=== PATIENT | male | born 1940 | race Caucasian/White ===

== ENCOUNTER → 2017-03-19 | Outpatient (CLI) | payer OTHER | LOC: CVU 13:35 | PROVIDERS: ATTEND Internal Medicine Cardiovascular Disease | DX: I65.22 Occlusion and stenosis of left carotid artery (principal); E11.9 Type 2 diabetes mellitus without complications; E78.5 Hyperlipidemia, unspecified | CPT/HCPCS: 93880; 93922; 93931 ==

== ENCOUNTER 2018-03-18 08:29 | Observation (INO) | payer OTHER ==
[~2018-03-18] VITALS: Ht 180.3 cm; Wt 84.0 kg
[~2018-03-18 08:29] MED LIST: ASPI-496 PO; DEXL60CA2 PO; DICL100G19 TP; EPIN5DRO RIGHTEYE; FINA5TAB4 PO; IPRA12.9 INH; IPRA15SP NS; Insulin pump; ROSU20TA PO; SERT50TA28 PO; TAMS-11 PO; TIMO5DRO5 RIGHTEYE; TRAZ-137 PO
[2018-03-18] MEDS ORDERED: LACTATED RINGERS 1,000 ML IV SCH (09:01)
[2018-03-18 09:04] VITALS: BP 136/75
[2018-03-18] MEDS ORDERED: FENTANYL PF 100 MCG/2ML ONE (09:57)
[2018-03-18] MEDS ORDERED: MIDAZOLAM 1 MG/ML, 2ML ONE (09:57)
[2018-03-18] MEDS ORDERED: GLYCOPYRROLATE 0.2MG/1ML, 5ML ONE (11:23)
[2018-03-18] MEDS ORDERED: ROCURONIUM 10 MG/ML,10ML ONE (11:23)
[2018-03-18] MEDS ORDERED: NEOSTIGMINE 1 MG/ML, 10ML ONE (11:23)
[2018-03-18] MEDS ORDERED: CEFAZOLIN 1,000 MG ONE (11:23)
[2018-03-18] MEDS ORDERED: GENTAMICIN 80 MG/2 ML ONE (11:23)
[2018-03-18] MEDS ORDERED: SUCCINYLCHOLINE 20 MG/ML, 10ML ONE (11:23)
[2018-03-18] MEDS ORDERED: PROPOFOL 10 MG/ML, 20ML ONE (11:23)
[2018-03-18] MEDS ORDERED: OXYcodone 5 MG/5 ML ORAL.SOL UDC ONE (12:42)
[2018-03-18] MEDS ORDERED: KETOROLAC 30 MG/1 ML ONE (12:44)
[2018-03-18] MEDS ORDERED: MEPERIDINE/PF 25MG/0.5ML IVPush PRN (13:00)
[2018-03-18] MEDS ORDERED: METOCLOPRAMIDE 5 MG/ML, 2ML IV PRN (13:00)
[2018-03-18] MEDS ORDERED: PROMETHAZINE 25 MG/ML, 1ML IV PRN (13:00)
[2018-03-18] MEDS ORDERED: FENTANYL PF 100 MCG/2ML IV PRN (13:00)
[2018-03-18] MEDS ORDERED: HYDROmorphone 1 MG/ML, 1ML IV PRN (13:00)
[2018-03-18] MEDS ORDERED: hydrALAzine 20 MG/ML, 1ML IV PRN (13:00)
[2018-03-18] MEDS ORDERED: ONDANSETRON 2MG/ML, 2ML IVPush PRN (13:00)
[2018-03-18] MEDS ORDERED: OXYcodone 5 MG/5 ML ORAL.SOL UDC PO PRN (13:00)
[2018-03-18] MEDS ORDERED: LABETALOL 20 MG/4 ML IV PRN (13:00)
[2018-03-18] MEDS ORDERED: ALBUTEROL SULFATE 2.5 MG/3 ML NPPB PRN (13:00)
[2018-03-18] MEDS ORDERED: KETOROLAC 30 MG/1 ML IV PRN (13:00)
[2018-03-18] MEDS ORDERED: hydrALAzine 20 MG/ML, 1ML ONE (13:03)
[2018-03-18] MEDS ORDERED: ONDANSETRON 2MG/ML, 2ML IV PRN (14:30)
[2018-03-18] MEDS ORDERED: ACETAMINOPHEN 325 MG TABLET PO PRN (14:30)
[2018-03-18] MEDS ORDERED: DIPHENHYDRAMINE 25 MG CAPSULE PO PRN (14:30)
[2018-03-18] MEDS ORDERED: OPIUM/BELLADONNA SUPP.RECT 16.2-30 MG PR PRN (14:30)
[2018-03-18] MEDS: HOME MED SHEET MC SCH ×2 (15:00→23:00)
[2018-03-18] MEDS ORDERED: HUMALOG INSULIN PUMP SQ-INSULIN SCH (15:00)
[2018-03-18] MEDS ORDERED: PHARMACY INSTRUCTION MC PRN (17:30)
[2018-03-18] MEDS ORDERED: IPRATROPIUM NASAL 0.03%, 30ML NAS PRN (17:30)
[2018-03-18 19:45] VITALS: BP 138/76
[2018-03-18] MEDS: CEFAZOLIN PMX 1GM/50ML 50 ML IVPB SCH (20:32)
[2018-03-18] MEDS: TIMOLOL OPHTH 0.5%, 5ML RIGHTEYE SCH (20:33)
[2018-03-18] MEDS: LACTATED RINGERS 1,000 ML IV SCH (20:34)
[2018-03-18] MEDS ORDERED: ATORVASTATIN 40 MG TABLET PO SCH (21:00)
[2018-03-18] MEDS ORDERED: TRAZODONE 100MG TABLET PO PRN (21:00)
[2018-03-18 23:35] VITALS: BP 145/77
[2018-03-19 04:00] VITALS: BP 134/79
[2018-03-19] MEDS: CEFAZOLIN PMX 1GM/50ML 50 ML IVPB SCH (05:00)
[2018-03-19 05:02] LABS: CALCIUM 8.4 mg/dL (8.5-10.1); CHLORIDE 109 mmol/L (98-107)
[2018-03-19 05:05] LABS: ANION GAP 4 mmol/L (5-15); CREATININE 0.88 mg/dL (0.7-1.3)
[2018-03-19] MEDS ORDERED: PANTOPROZOLE 40MG TABLET PO SCH (06:00)
[2018-03-19] MEDS: HOME MED SHEET MC SCH (07:00)
[2018-03-19] MEDS: LACTATED RINGERS 1,000 ML IV SCH (07:45)
[2018-03-19] MEDS: TIMOLOL OPHTH 0.5%, 5ML RIGHTEYE SCH (07:50)
[2018-03-19 08:03] VITALS: BP 145/73
[2018-03-19] MEDS ORDERED: DOCUSATE 100 MG CAPSULE PO SCH (09:00)
[2018-03-19] MEDS ORDERED: EPINASTINE RIGHTEYE SCH (09:00)
[2018-03-19] MEDS ORDERED: SERTRALINE 50MG TABLET PO SCH (09:00)
[2018-03-19] MEDS ORDERED: TAMSULOSIN 0.4 MG CAP.ER.24H PO SCH (09:00)
[2018-03-19] MEDS ORDERED: FINASTERIDE 5 MG TABLET PO SCH (09:00)
[2018-03-19 13:18] VITALS: BP 121/68
== END 2018-03-19 16:29 | disposition home or self-care (01) ==
LOC: OUT 08:29 → 4NOR 13:45 → OUT 14:07 → DCLOUNGE 03-19 16:12
PROVIDERS: ADMIT Urology; ATTEND Urology
DX: N40.0 Benign prostatic hyperplasia without lower urinary tract symptoms (principal)
CPT/HCPCS: 36415; 52601; 80048; 82962; 88305; 96365; 96366; G0378; J0330; J0360; J0690; J1580; J1885; J2250; J2704; J2710; J3010; J3490; J7120

== ENCOUNTER 2018-04-16 11:38 | Observation (INO) | payer OTHER ==
[~2018-04-16] VITALS: Ht 180.3 cm; Wt 88.3 kg
[~2018-04-16 11:38] MED LIST changes: -ROSU20TA PO; +ROSU20TA2 PO
--- NOTE | 2018-04-16 11:38 | NUR ---
PT. ARRIVES BY AMBULANCE FROM [place] WITH C/O CHEST PAIN THAT BEGAN AFTER 1000 AM TODAY. PT. IS CURRENTLY PAIN FREE AND SYMPTOMATIC. CODE CARDIAC WAS INICIATED FEDERAL AGENT. PT. HAS [address] 12 LEAD EKG WAS DONE UPON ARRIVAL. ER TEAM IS AT THE BEDSIDE. PT. WAS PLACED ON THE CP MONITOR. EXPLAINING MAINTENANCE SHOP LABORER AND THE PROCEDURE TO THE PT. PT. RECEIVED 324MG ASA FEDERAL AGENT WELL ZOFRAN. LUNGS ARE CTA. MM ARE PINK AND MOIST WITH PULSES +2 THROUGHOUT. PT. HAS A BLANKET FOR WARMTH. SIDERAILS REMAIN UP X [address] WITH THE CALL LIGHT IN PLACE.
[2018-04-16] MEDS ORDERED: SODIUM CHLORIDE 0.9% 1,000 ML IV SCH (11:54)
[2018-04-16 12:00] LABS: BASOPHILS # (AUTO) 0.02 x10^3/uL (0-0.1); BASOPHILS % (AUTO) 0 % (0-1); EOSINOPHILS # (AUTO) 0.25 x10^3/uL (0-0.4); EOSINOPHILS % (AUTO) 5 % (1-7); LYMPHOCYTES # (AUTO) 1.42 x10^3/uL (1-3.4); LYMPHOCYTES % (AUTO) 29 % (22-44); MD NO; MEAN CORPUSCULAR HEMOGLOBIN 32.3 pg (27.5-34.5); MEAN CORPUSCULAR HGB CONC 33.8 g/dL (33.2-36.2); MEAN CORPUSCULAR VOLUME 95.6 fL (81-97); MEAN PLATELET VOLUME 9.4 fL (7.4-10.4); MONOCYTES # (AUTO) 0.32 x10^3/uL (0.2-0.8); MONOCYTES % (AUTO) 7 % (2-9); NEUTROPHILS # (AUTO) 2.89 x10^3/uL (1.8-6.8); NEUTROPHILS % (AUTO) 59 % (42-75); PLATELET COUNT 188 x10^3/uL (130-400); RED BLOOD COUNT 4.15 x10^6/uL (4.38-5.82); RED CELL DISTRIBUTION WIDTH 13.7 % (9.4-14.8)
[2018-04-16] MEDS ORDERED: SODIUM CHLORIDE FLUSH 10ML SYR IVF ONE (12:00)
[2018-04-16] MEDS ORDERED: PLEASE ENTER HEIGHT AND WEIGHT MC SCH (12:00)
[2018-04-16] MEDS ORDERED: HEPARIN 25,000 UNITS/500ML PMX 500 ML IV PRN ×2 (12:00→14:30)
[2018-04-16] MEDS ORDERED: HEPARIN 5,000 UNITS/ML, 1ML ONE (12:02)
[2018-04-16] MEDS ORDERED: HEPARIN 25,000 UNITS/500ML PMX 500 ML ONE (12:03)
[2018-04-16 12:10] LABS: INTERNATIONAL NORMALIZED RATIO 1.02 (0.93-1.1); PROTHROMBIN TIME 10.7 Seconds (9.6-11.5)
[2018-04-16 12:12] LABS: ALBUMIN 3.2 g/dL (3.4-5.0); CALCIUM 7.8 mg/dL (8.5-10.1); CHLORIDE 113 mmol/L (98-107)
--- NOTE | 2018-04-16 12:20 | NUR ---
MARGUERITE CHINO CALLED THE PHARMACIST GABRIEL TO DISCUSS PT.'S HEPARIN GTT. PT.'S HEPARIN IS INFUSING ON THE PUMP. NO BOLUS ORDERED. LABS HAVE BEEN DONE. NO BOLUS IS ORDERED AT THIS TIME. DISCUSSED WITH DR. QUINONES, NO FURTHER ORDERS. ALL MEDICATIONS WERE ADMINISTERED ORDERED AND CHECK BY MARGUERITE COLLADO AND MARGUERITE CHINO. PT. REMAINS PAIN FREE, VOIDED 400 CC YELLOW URINE AND IS RESTING WITHOUT CONCERNS. HOB IS ELEVATED GREATER THAN 30 DEGREES. PT. HAS BLANKETS FOR WARMTH.
[2018-04-16 12:25] LABS: ANION GAP 5 mmol/L (5-15)
--- NOTE | 2018-04-16 12:35 | NUR ---
DR. HEARD AT THE BEDSIDE WITH THE. IS AWARE THAT A HEPARIN BOLUS HAS NOT BEEN ORDERED. VSS.
[2018-04-16] MEDS ORDERED: IPRATROPIUM 0.5 MG/2.5 ML INHA NPPB SCH (13:00)
[2018-04-16] MEDS ORDERED: SODIUM CHLORIDE FLUSH 10ML SYR IVF PRN (13:00)
[2018-04-16] MEDS ORDERED: NITROGLYCERIN SINGLE TAB 0.4 MG SL PRN (13:00)
--- NOTE | 2018-04-16 13:13 | NUR ---
REPORT WAS GIVEN TO DUNCAN EVERETT.
[2018-04-16 13:14] LABS: CHOLESTEROL, TOTAL 124 mg/dL (140-239); TRIGLYCERIDES 67 mg/dL (50-200); VLDL CHOLESTEROL 13 mg/dL (0-25)
[2018-04-16 13:17] LABS: CHOL/HDL RATIO 3.1; HDL CHOL % 32 % (26-37); HDL CHOLESTEROL (DIRECT) 40 mg/dL (40-60); LDL CHOLESTEROL,CALCULATED 71 mg/dL (54-169); LDL/HDL RATIO 1.8 (0.5-3.0)
[2018-04-16 13:18] LABS: TROPONIN I 0.352 ng/mL (0.000-0.045)
--- NOTE | 2018-04-16 13:52 | NUR ---
REPORT TO LAURE EVERETT
[2018-04-16 14:28] VITALS: BP 121/60
[2018-04-16] MEDS ORDERED: HEPARIN 5,000 UNITS/ML, 1ML IV ONE (14:30)
[2018-04-16] MEDS ORDERED: HEPARIN 5,000 UNITS/ML, 1ML IV PRN (14:30)
[2018-04-16] MEDS ORDERED: BIVALIRUDIN 250 MG ONE (16:21)
[2018-04-16] MEDS ORDERED: TICAGRELOR 90 MG TABLET ONE (16:21)
[2018-04-16] MEDS ORDERED: MIDAZOLAM 1 MG/ML, 5ML ONE (16:21)
[2018-04-16] MEDS ORDERED: VERAPAMIL 2.5 MG/ML, 2ML ONE (16:21)
[2018-04-16] MEDS ORDERED: HEPARIN 1,000 UNITS/ML, 10ML ONE (16:21)
[2018-04-16] MEDS ORDERED: FENTANYL PF 100 MCG/2ML ONE (16:21)
[2018-04-16] MEDS ORDERED: LIDOCAINE-MPF 1%, 5ML ONE (16:22)
[2018-04-16] MEDS ORDERED: LIDOCAINE 2%, 20ML ONE (16:33)
[2018-04-16] MEDS ORDERED: ASPIRIN 325 MG TABLET EC ONE (18:06)
[2018-04-16] MEDS ORDERED: ACETAMINOPHEN 325 MG TABLET PO PRN (18:30)
[2018-04-16] MEDS: SODIUM CHLORIDE 0.9% 1,000 ML IV SCH ×2 (18:44→21:33)
[2018-04-16 20:00] VITALS: BP 123/69
[2018-04-16] MEDS ORDERED: TEMPLATE NON-FORMULARY MED. (Rosuvastatin Calcium** (Crestor**) 20 MG) PO SCH (21:00)
[2018-04-16] MEDS: TICAGRELOR 90 MG TABLET PO SCH (21:26)
[2018-04-16] MEDS: TAMSULOSIN 0.4 MG CAP.ER.24H PO SCH (21:26)
[2018-04-16] MEDS: METOPROLOL TARTRATE 25 MG TABLET PO SCH (21:26)
[2018-04-16] MEDS: SODIUM CHLORIDE FLUSH 10ML SYR IVF SCH (21:27)
[2018-04-16] MEDS: TRAZODONE 100MG TABLET PO SCH (21:27)
[2018-04-16] MEDS: ATORVASTATIN 80 MG TABLET PO SCH (21:27)
[2018-04-16] MEDS: TIMOLOL OPHTH 0.5%, 5ML RIGHTEYE SCH (21:38)
[2018-04-16] MEDS ORDERED: ONDANSETRON ODT 4 MG ONE (22:57)
[2018-04-16] MEDS ORDERED: ONDANSETRON ODT 4 MG PO PRN (23:00)
[2018-04-17] MEDS ORDERED: LATA2.5D3 RIGHTEYE (00:01)
[2018-04-17 01:53] VITALS: BP 106/59
[2018-04-17 05:22] LABS: ANION GAP 4 mmol/L (5-15); CALCIUM 7.8 mg/dL (8.5-10.1); CHLORIDE 114 mmol/L (98-107); CREATININE 0.91 mg/dL (0.7-1.3)
[2018-04-17] MEDS: SODIUM CHLORIDE 0.9% 1,000 ML IV SCH (05:22)
[2018-04-17] MEDS: ASPIRIN 81 MG TABLET EC PO SCH (05:22)
[2018-04-17] MEDS ORDERED: ASPIRIN 325 MG TABLET EC PO SCH (06:00)
[2018-04-17 07:06] VITALS: BP 112/62
[2018-04-17] MEDS: PANTOPROZOLE 40MG TABLET PO SCH (08:27)
[2018-04-17] MEDS: TIMOLOL OPHTH 0.5%, 5ML RIGHTEYE SCH ×2 (08:27→20:32)
[2018-04-17] MEDS: TAMSULOSIN 0.4 MG CAP.ER.24H PO SCH ×2 (08:27→20:31)
[2018-04-17] MEDS: SERTRALINE 50MG TABLET PO SCH (08:27)
[2018-04-17] MEDS: TICAGRELOR 90 MG TABLET PO SCH ×2 (08:27→20:37)
[2018-04-17] MEDS: METOPROLOL TARTRATE 25 MG TABLET PO SCH ×2 (08:27→20:31)
[2018-04-17] MEDS: FINASTERIDE 5 MG TABLET PO SCH (08:27)
[2018-04-17] MEDS: SODIUM CHLORIDE FLUSH 10ML SYR IVF SCH ×2 (08:29→20:30)
[2018-04-17 15:35] VITALS: BP 104/62
[2018-04-17 19:26] VITALS: BP 107/61
[2018-04-17] MEDS: ATORVASTATIN 80 MG TABLET PO SCH (20:30)
[2018-04-17] MEDS: TRAZODONE 100MG TABLET PO SCH (20:31)
[2018-04-17] MEDS: EPINASTINE HCL RIGHTEYE SCH ×2 (20:38→21:00)
[2018-04-18 00:02] VITALS: BP 124/71
[2018-04-18] MEDS: ASPIRIN 81 MG TABLET EC PO SCH (05:22)
[2018-04-18 05:53] LABS: ANION GAP 4 mmol/L (5-15); CALCIUM 8.4 mg/dL (8.5-10.1); CHLORIDE 114 mmol/L (98-107)
[2018-04-18 06:01] LABS: BASOPHILS # (AUTO) 0.02 x10^3/uL (0-0.1); BASOPHILS % (AUTO) 0 % (0-1); EOSINOPHILS # (AUTO) 0.21 x10^3/uL (0-0.4); EOSINOPHILS % (AUTO) 4 % (1-7); LYMPHOCYTES % (AUTO) 26 % (22-44); MD NO; MEAN CORPUSCULAR HEMOGLOBIN 32.3 pg (27.5-34.5); MEAN CORPUSCULAR VOLUME 95.1 fL (81-97); MEAN PLATELET VOLUME 9.6 fL (7.4-10.4); MONOCYTES # (AUTO) 0.68 x10^3/uL (0.2-0.8); MONOCYTES % (AUTO) 11 % (2-9); NEUTROPHILS # (AUTO) 3.59 x10^3/uL (1.8-6.8); NEUTROPHILS % (AUTO) 59 % (42-75); PLATELET COUNT 166 x10^3/uL (130-400); RED BLOOD COUNT 4.04 x10^6/uL (4.38-5.82); RED CELL DISTRIBUTION WIDTH 13.8 % (9.4-14.8)
[2018-04-18 06:09] LABS: HEMOGLOBIN A1C 7.5 % (4.2-6.3)
[2018-04-18 07:14] VITALS: BP 145/76
[2018-04-18] MEDS: TAMSULOSIN 0.4 MG CAP.ER.24H PO SCH (09:13)
[2018-04-18] MEDS: FINASTERIDE 5 MG TABLET PO SCH (09:13)
[2018-04-18] MEDS: TICAGRELOR 90 MG TABLET PO SCH (09:13)
[2018-04-18] MEDS: METOPROLOL TARTRATE 25 MG TABLET PO SCH (09:14)
[2018-04-18] MEDS: PANTOPROZOLE 40MG TABLET PO SCH (09:14)
[2018-04-18] MEDS: SERTRALINE 50MG TABLET PO SCH (09:14)
[2018-04-18] MEDS: SODIUM CHLORIDE FLUSH 10ML SYR IVF SCH (09:15)
[2018-04-18] MEDS: TIMOLOL OPHTH 0.5%, 5ML RIGHTEYE SCH (09:15)
[2018-04-18] MEDS ORDERED: ATOR-2 PO (10:39)
[2018-04-18] MEDS ORDERED: NITR0.4T SL (10:39)
[2018-04-18] MEDS ORDERED: TICA90TA PO (10:39)
[2018-04-18] MEDS ORDERED: ONDA4TAB13 PO (10:39)
[2018-04-18] MEDS ORDERED: METO25TA35 PO (10:39)
[2018-04-18] MEDS ORDERED: ASPI81TA45 PO (10:39)
[2018-04-18] MEDS ORDERED: LISINOPRIL 5 MG TABLET PO SCH (11:00)
[2018-04-18 11:11] LABS: BILIRUBIN, DIRECT 0.2 mg/dL (0.1-0.2); BILIRUBIN,INDIRECT 0.4 mg/dL (0.0-2.0); BILIRUBIN,TOTAL 0.6 mg/dL (0.2-1.0); TOTAL PROTEIN 6.2 g/dL (6.4-8.2)
[2018-04-18] MEDS ORDERED: LISI5TAB7 PO (11:33)
[2018-05-27] MEDS ORDERED: OXYcodone IR 5MG TABLET PO PRN (15:30)
[2018-05-27] MEDS ORDERED: ENOXAPARIN 40 MG/0.4 ML SQ SCH (15:30)
[2018-05-27] MEDS ORDERED: NITROGLYCERIN 0.4 MG BOTTLE (25 TABS) SL PRN ×2 (15:30)
[2018-05-27] MEDS ORDERED: LABETALOL 5MG/ML, 20ML IVPush PRN (15:30)
[2018-05-27] MEDS ORDERED: ACETAMINOPHEN 325 MG TABLET PO PRN (15:30)
[2018-05-27] MEDS ORDERED: morphine SULFATE 10 MG/ML, 1ML IVPush PRN (15:30)
[2018-05-27] MEDS ORDERED: INSULIN LISPRO 100 UNITS/ML, PEN SQ-INSULIN SCH (16:00)
[2018-05-27 16:52] LABS: HEMOGLOBIN A1C 7.9 % (4.2-6.3)
[2018-05-27 18:42] LABS: TROPONIN I 0.022 ng/mL (0.000-0.045)
[2018-05-27] MEDS ORDERED: ATORVASTATIN 80 MG TABLET PO SCH (21:00)
[2018-05-27 22:31] LABS: TROPONIN I 0.022 ng/mL (0.000-0.045)
[2018-05-28 04:48] LABS: BASOPHILS # (AUTO) 0.03 x10^3/uL (0-0.1); BASOPHILS % (AUTO) 1 % (0-1); EOSINOPHILS # (AUTO) 0.23 x10^3/uL (0-0.4); EOSINOPHILS % (AUTO) 4 % (1-7); LYMPHOCYTES # (AUTO) 2.27 x10^3/uL (1-3.4); LYMPHOCYTES % (AUTO) 43 % (22-44); MD NO; MEAN CORPUSCULAR HEMOGLOBIN 32.2 pg (27.5-34.5); MEAN CORPUSCULAR HGB CONC 33.9 g/dL (33.2-36.2); MEAN CORPUSCULAR VOLUME 95.1 fL (81-97); MONOCYTES # (AUTO) 0.47 x10^3/uL (0.2-0.8); MONOCYTES % (AUTO) 9 % (2-9); NEUTROPHILS # (AUTO) 2.34 x10^3/uL (1.8-6.8); NEUTROPHILS % (AUTO) 44 % (42-75); PLATELET COUNT 184 x10^3/uL (130-400); RED BLOOD COUNT 4.26 x10^6/uL (4.38-5.82); RED CELL DISTRIBUTION WIDTH 13.7 % (9.4-14.8)
[2018-05-28 05:03] LABS: ANION GAP 6 mmol/L (5-15); CALCIUM 8.5 mg/dL (8.5-10.1); CHLORIDE 109 mmol/L (98-107)
[2018-05-28 05:04] LABS: CREATININE 1.15 mg/dL (0.7-1.3)
[2018-05-28] MEDS ORDERED: ASPIRIN 81 MG TABLET EC PO SCH (06:00)
[2018-05-28] MEDS ORDERED: EPINASTINE OTIC SCH (09:00)
[2018-05-28] MEDS ORDERED: LISINOPRIL 5 MG TABLET PO SCH (09:00)
== END 2018-04-18 11:30 | disposition home or self-care (01) ==
LOC: ED 12:31 → INTOOBSV 12:32 → EDIP 12:32 → ED 13:35 → 5SO 14:14 → DCLOUNGE 04-18 11:10
PROVIDERS: ADMIT Internal Medicine; ATTEND Internal Medicine
DX: T82.855A Stenosis of coronary artery stent, initial encounter (principal); I25.110 Atherosclerotic heart disease of native coronary artery with unstable angina pectoris; Y83.1 Surgical operation with implant of artificial internal device as the cause of abnormal reaction of the patient, or of later complication, without mention of misadventure at the time of the procedure; F32.9 Major depressive disorder, single episode, unspecified; E78.5 Hyperlipidemia, unspecified; E11.9 Type 2 diabetes mellitus without complications; I10 Essential (primary) hypertension; T40.2X5A Adverse effect of other opioids, initial encounter; Z96.41 Presence of insulin pump (external) (internal); N40.0 Benign prostatic hyperplasia without lower urinary tract symptoms; Z79.82 Long term (current) use of aspirin; I25.2 Old myocardial infarction; Z79.4 Long term (current) use of insulin; Y92.89 Other specified places as the place of occurrence of the external cause; Z88.6 Allergy status to analgesic agent
CPT/HCPCS: 36415; 71045; 80048; 80061; 80076; 82040; 83036; 83735; 83880; 84100; 84484; 85025; 85520; 85610; 85730; 93005; 93306; 93458; 96365; 96366; 96376; 97161; 99156; 99157; 99285; C1725; C1760; C1769; C1874; C1887; C1894; C9600; G0378; J0583; J1644; J2250; J3010; J3490; J7030; Q0162; Q9967; 96374

== ENCOUNTER 2018-04-19 09:22 | Emergency (ER) | payer MEDICARE, OTHER ==
[~2018-04-19] VITALS: Ht 180.3 cm; Wt 86.0 kg
[~2018-04-19 09:22] MED LIST changes: +ASPI81TA45 PO; +ATOR-2 PO; +LATA2.5D3 RIGHTEYE; +LISI5TAB7 PO; +METO25TA35 PO; +NITR0.4T SL; +ONDA4TAB13 PO; +TICA90TA PO
--- NOTE | 2018-04-19 09:55 | NUR ---
Diffuse upper chest pressure 3/10 with SOB onset 1hr ago. Pt was d/c from [facility] yesterday after being hospitalized for DE.
[2018-04-19] MEDS ORDERED: NITROGLYCERIN OINT 2%, 1GM TP ONE ×2 (10:03→11:00)
[2018-04-19] MEDS ORDERED: ASPIRIN 81 MG TABLET CHEW ONE (10:03)
--- NOTE | 2018-04-19 10:17 | NUR ---
Sinus jennifer on monitor. IV lock est, labs drawn to hold. Awaiting ER MD orders. Intermittent chest pressure remains.
[2018-04-19] MEDS ORDERED: SODIUM CHLORIDE FLUSH 10ML SYR IVF ONE (11:00)
[2018-04-19] MEDS ORDERED: ASPIRIN 81 MG TABLET CHEW PO ONE (11:00)
--- NOTE | 2018-04-19 11:05 | NUR ---
ASA, Ntg paste applied as per emar. CXR done, labs pending. Pt states pressure in chest 2/10 at this time.
[2018-04-19 11:21] LABS: BASOPHILS # (AUTO) 0.02 x10^3/uL (0-0.1); BASOPHILS % (AUTO) 0 % (0-1); EOSINOPHILS # (AUTO) 0.18 x10^3/uL (0-0.4); EOSINOPHILS % (AUTO) 3 % (1-7); LYMPHOCYTES # (AUTO) 1.05 x10^3/uL (1-3.4); LYMPHOCYTES % (AUTO) 20 % (22-44); MD NO; MEAN CORPUSCULAR HEMOGLOBIN 31.5 pg (27.5-34.5); MEAN CORPUSCULAR HGB CONC 32.7 g/dL (33.2-36.2); MEAN CORPUSCULAR VOLUME 96.5 fL (81-97); MEAN PLATELET VOLUME 10.1 fL (7.4-10.4); MONOCYTES # (AUTO) 0.45 x10^3/uL (0.2-0.8); MONOCYTES % (AUTO) 9 % (2-9); NEUTROPHILS # (AUTO) 3.61 x10^3/uL (1.8-6.8); NEUTROPHILS % (AUTO) 68 % (42-75); PLATELET COUNT 174 x10^3/uL (130-400); RED BLOOD COUNT 3.96 x10^6/uL (4.38-5.82); RED CELL DISTRIBUTION WIDTH 14.1 % (9.4-14.8)
[2018-04-19 11:31] LABS: ALANINE AMINOTRANSFERASE 52 U/L (12-78); ANION GAP 4 mmol/L (5-15); CHLORIDE 112 mmol/L (98-107); CREATININE 0.99 mg/dL (0.7-1.3); INTERNATIONAL NORMALIZED RATIO 1.05 (0.93-1.1)
[2018-04-19 11:36] LABS: ALKALINE PHOSPHATASE 91 U/L (45-117); BILIRUBIN,TOTAL 0.6 mg/dL (0.2-1.0); TOTAL PROTEIN 6.1 g/dL (6.4-8.2)
--- NOTE | 2018-04-19 11:49 | NUR ---
paged dr duane hoskins for dr cage
--- NOTE | 2018-04-19 12:30 | NUR ---
Pain free at time of d/c. Patient given discharge instructions and they have confirmed that they understand the instructions. Patient ambulatory with steady gait.
[2018-04-19 12:31] VITALS: BP 121/61
== END 2018-04-19 12:33 | disposition home or self-care (01) ==
LOC: ED 11:27
DX: R07.2 Precordial pain (principal); I25.2 Old myocardial infarction; E78.5 Hyperlipidemia, unspecified; E11.9 Type 2 diabetes mellitus without complications
CPT/HCPCS: 36415; 71045; 80053; 83880; 84484; 85025; 85610; 85730; 93005; 99284

== ENCOUNTER 2018-05-10 10:54 | Emergency (ER) | payer OTHER ==
[~2018-05-10] VITALS: Ht 180.3 cm; Wt 84.5 kg
[2018-05-10 10:57] VITALS: BP 128/73
[2018-05-10 11:52] LABS: BASOPHILS # (AUTO) 0.02 x10^3/uL (0-0.1); BASOPHILS % (AUTO) 0 % (0-1); EOSINOPHILS # (AUTO) 0.32 x10^3/uL (0-0.4); EOSINOPHILS % (AUTO) 5 % (1-7); LYMPHOCYTES # (AUTO) 1.54 x10^3/uL (1-3.4); LYMPHOCYTES % (AUTO) 23 % (22-44); MD NO; MEAN CORPUSCULAR HEMOGLOBIN 31.9 pg (27.5-34.5); MEAN CORPUSCULAR HGB CONC 33.3 g/dL (33.2-36.2); MEAN CORPUSCULAR VOLUME 95.7 fL (81-97); MEAN PLATELET VOLUME 10.3 fL (7.4-10.4); MONOCYTES # (AUTO) 0.46 x10^3/uL (0.2-0.8); MONOCYTES % (AUTO) 7 % (2-9); NEUTROPHILS # (AUTO) 4.41 x10^3/uL (1.8-6.8); NEUTROPHILS % (AUTO) 65 % (42-75); PLATELET COUNT 214 x10^3/uL (130-400); RED BLOOD COUNT 4.51 x10^6/uL (4.38-5.82)
[2018-05-10 12:02] LABS: ALBUMIN 3.6 g/dL (3.4-5.0); ANION GAP 6 mmol/L (5-15); CALCIUM 8.4 mg/dL (8.5-10.1); CHLORIDE 109 mmol/L (98-107)
[2018-05-10 12:06] LABS: TROPONIN I 0.016 ng/mL (0.000-0.045)
[2018-05-10] MEDS ORDERED: SODIUM CHLORIDE 0.9% 1,000ML IVBOLUS ONE (12:30)
[2018-05-10] MEDS ORDERED: OMNIPAQUE 350 MG/ML, 100ML BOTTLE ONE (12:50)
== END 2018-05-10 14:25 | disposition home or self-care (01) ==
LOC: ED 12:12
DX: E11.65 Type 2 diabetes mellitus with hyperglycemia (principal)
CPT/HCPCS: 36415; 71045; 71275; 80048; 82040; 83880; 84484; 85025; 85379; 93005; 99284; Q9967

== ENCOUNTER 2018-05-27 12:16 | Inpatient (IN) | payer OTHER ==
[~2018-05-27] VITALS: Ht 180.3 cm; Wt 82.7 kg
[2018-05-27] MEDS ORDERED: SODIUM CHLORIDE FLUSH 10ML SYR IVF ONE (12:30)
--- NOTE | 2018-05-27 12:58 | NUR ---
PT PRESENTED TO ED WITH "NOT FEELING WELL" WHEN HE WAS AT THE [facility]KELET[facility] PHYSICIAN TODAY. PT A&OX4. PT PLACED IN ROOM AND PLACED ON BP AND CONT. PULSE OXIMETER. ASSESSMENT COMPLETE. PT WITH HX: TN IN MARCH, DM, HIGH CHOLESTEROL, HTN, TN WITH STENT 04/2008. CALL LIGHT IN REACH.
[2018-05-27 13:01] LABS: BASOPHILS # (AUTO) 0.01 x10^3/uL (0-0.1); BASOPHILS % (AUTO) 0 % (0-1); EOSINOPHILS # (AUTO) 0.14 x10^3/uL (0-0.4); EOSINOPHILS % (AUTO) 3 % (1-7); LYMPHOCYTES # (AUTO) 1.42 x10^3/uL (1-3.4); LYMPHOCYTES % (AUTO) 25 % (22-44); MD NO; MEAN CORPUSCULAR HEMOGLOBIN 31.3 pg (27.5-34.5); MEAN CORPUSCULAR VOLUME 94.8 fL (81-97); MONOCYTES # (AUTO) 0.46 x10^3/uL (0.2-0.8); MONOCYTES % (AUTO) 8 % (2-9); NEUTROPHILS % (AUTO) 64 % (42-75); PLATELET COUNT 210 x10^3/uL (130-400); RED BLOOD COUNT 4.44 x10^6/uL (4.38-5.82)
[2018-05-27 13:12] LABS: ALBUMIN 3.4 g/dL (3.4-5.0); ANION GAP 5 mmol/L (5-15); CALCIUM 8.5 mg/dL (8.5-10.1); CHLORIDE 109 mmol/L (98-107)
[2018-05-27 13:15] LABS: ALANINE AMINOTRANSFERASE 57 U/L (12-78); ALKALINE PHOSPHATASE 151 U/L (45-117); CREATININE 1.15 mg/dL (0.7-1.3); TOTAL PROTEIN 6.7 g/dL (6.4-8.2); TROPONIN I 0.017 ng/mL (0.000-0.045)
[2018-05-27 13:24] LABS: BILIRUBIN,TOTAL 0.4 mg/dL (0.2-1.0)
[2018-05-27] MEDS ORDERED: TICA90TA PO (14:01)
[2018-05-27] MEDS ORDERED: METO25TA35 PO (14:02)
[2018-05-27] MEDS ORDERED: EPIN5DRO OTIC (14:07)
--- NOTE | 2018-05-27 14:34 | NUR ---
REPORT GIVEN TO LAUREN EVERETT. PT RESTING IN BED. 2 IV ATTEMPTED AND UNSUCCESSFUL
[2018-05-27 15:32] VITALS: BP 146/69
[2018-05-27] MEDS ORDERED: ACETAMINOPHEN 325 MG TABLET PO PRN ×2 (16:00)
[2018-05-27] MEDS ORDERED: OXYcodone IR 5MG TABLET PO PRN (16:00)
[2018-05-27] MEDS ORDERED: NITROGLYCERIN 0.4 MG BOTTLE (25 TABS) SL PRN ×3 (16:00)
[2018-05-27] MEDS ORDERED: hydrALAzine 20 MG/ML, 1ML IVPush PRN (16:00)
[2018-05-27] MEDS ORDERED: LABETALOL 5 MG/ML SYRINGE IVPush PRN (16:00)
[2018-05-27] MEDS ORDERED: morphine SULFATE 10 MG/ML, 1ML IVPush PRN (16:00)
[2018-05-27] MEDS: INSULIN LISPRO 100 UNITS/ML, PEN SQ-INSULIN SCH ×2 (16:59→21:32)
[2018-05-27] MEDS ORDERED: NITROGLYCERIN 0.4 MG/SPRAY SL PRN (17:00)
[2018-05-27] MEDS: ENOXAPARIN 40 MG/0.4 ML SQ SCH (17:22)
[2018-05-27 20:25] VITALS: BP 116/67
[2018-05-27] MEDS ORDERED: METOPROLOL TARTRATE 25 MG TABLET PO SCH (21:00)
[2018-05-27] MEDS: METOPROLOL TARTRATE 25 MG TABLET PO SCH (21:30)
[2018-05-27] MEDS: ATORVASTATIN 80 MG TABLET PO SCH (21:32)
[2018-05-27] MEDS: TICAGRELOR 90 MG TABLET PO SCH (21:32)
[2018-05-27] MEDS: TRAZODONE 100MG TABLET PO PRN (21:33)
[2018-05-28 01:13] VITALS: BP 124/71
[2018-05-28] MEDS: D5%-0.45% NACL 1,000 ML IV SCH ×2 (05:58→14:37)
[2018-05-28] MEDS: ASPIRIN 81 MG TABLET EC PO SCH (05:59)
[2018-05-28 07:08] VITALS: BP 107/63
[2018-05-28] MEDS: INSULIN LISPRO 100 UNITS/ML, PEN SQ-INSULIN SCH ×4 (07:39→22:14)
[2018-05-28] MEDS: TICAGRELOR 90 MG TABLET PO SCH ×2 (07:40→22:03)
[2018-05-28] MEDS: EPINASTINE HCL OTIC SCH (07:40)
[2018-05-28] MEDS: LISINOPRIL 5 MG TABLET PO SCH (07:41)
[2018-05-28] MEDS: METOPROLOL TARTRATE 25 MG TABLET PO SCH ×2 (07:41→22:03)
[2018-05-28 08:06] LABS: ANION GAP 5 mmol/L (5-15); CALCIUM 8.2 mg/dL (8.5-10.1); CHLORIDE 109 mmol/L (98-107)
[2018-05-28 08:10] LABS: CREATININE 1.16 mg/dL (0.7-1.3); TROPONIN I 0.023 ng/mL (0.000-0.045)
[2018-05-28] MEDS ORDERED: TICAGRELOR 90 MG TABLET PO SCH (09:00)
[2018-05-28 14:05] VITALS: BP 103/65
[2018-05-28] MEDS ORDERED: LIDOCAINE-MPF 1%, 5ML ONE (16:31)
[2018-05-28] MEDS ORDERED: MIDAZOLAM 1 MG/ML, 5ML ONE (16:31)
[2018-05-28] MEDS ORDERED: FENTANYL PF 100 MCG/2ML ONE (16:31)
[2018-05-28] MEDS ORDERED: VERAPAMIL 2.5 MG/ML, 2ML ONE (16:31)
[2018-05-28] MEDS: ENOXAPARIN 40 MG/0.4 ML SQ SCH (16:47)
[2018-05-28] MEDS: SODIUM CHLORIDE 0.9% 1,000 ML IV SCH (17:45)
[2018-05-28 19:09] VITALS: BP 116/68
[2018-05-28 21:56] VITALS: BP 113/70
[2018-05-28] MEDS: ATORVASTATIN 80 MG TABLET PO SCH (22:03)
[2018-05-28] MEDS: TRAZODONE 100MG TABLET PO PRN (22:35)
[2018-05-29 01:53] VITALS: BP 118/57
[2018-05-29] MEDS: SODIUM CHLORIDE 0.9% 1,000 ML IV SCH (02:04)
[2018-05-29] MEDS: ASPIRIN 81 MG TABLET EC PO SCH (05:26)
[2018-05-29 05:59] LABS: CHLORIDE 113 mmol/L (98-107)
[2018-05-29] MEDS ORDERED: D5%-0.45% NACL 1,000 ML IV SCH (06:00)
[2018-05-29 06:18] LABS: ALANINE AMINOTRANSFERASE 42 U/L (12-78); ALBUMIN 3.2 g/dL (3.4-5.0); ALKALINE PHOSPHATASE 114 U/L (45-117); ANION GAP 6 mmol/L (5-15); BILIRUBIN,TOTAL 0.7 mg/dL (0.2-1.0); CALCIUM 8.4 mg/dL (8.5-10.1); CREATININE 1.05 mg/dL (0.7-1.3); TOTAL PROTEIN 6.2 g/dL (6.4-8.2)
[2018-05-29 06:56] VITALS: BP 116/73
[2018-05-29] MEDS: INSULIN LISPRO 100 UNITS/ML, PEN SQ-INSULIN SCH ×2 (08:00→12:15)
[2018-05-29] MEDS: TICAGRELOR 90 MG TABLET PO SCH (08:52)
[2018-05-29] MEDS: METOPROLOL TARTRATE 25 MG TABLET PO SCH (08:52)
[2018-05-29] MEDS: LISINOPRIL 5 MG TABLET PO SCH (08:53)
[2018-05-29] MEDS: EPINASTINE HCL OTIC SCH (08:53)
[2018-05-29] MEDS ORDERED: NITR0.4T SL (11:25)
== END 2018-05-29 12:44 | disposition home or self-care (01) | DRG 287 ==
LOC: ED 13:30 → OBSVTOIN 15:42 → 5SO 15:42 → INTOOBSV 15:42 → DCLOUNGE 05-29 12:25
PROVIDERS: ADMIT Internal Medicine; ATTEND Internal Medicine
PROC: 4A023N7 Measurement of Cardiac Sampling and Pressure, Left Heart, Percutaneous Approach (ICD-10-PCS; principal; 2018-05-28)
PROC: B211YZZ Fluoroscopy of Multiple Coronary Arteries using Other Contrast (ICD-10-PCS; 2018-05-28)
PROC: 5A09357 Assistance with Respiratory Ventilation, Less than 24 Consecutive Hours, Continuous Positive Airway Pressure (ICD-10-PCS; 2018-05-29)
DX: R07.89 Other chest pain (principal); E10.9 Type 1 diabetes mellitus without complications; I25.10 Atherosclerotic heart disease of native coronary artery without angina pectoris; E78.5 Hyperlipidemia, unspecified; G47.33 Obstructive sleep apnea (adult) (pediatric); I10 Essential (primary) hypertension; Z96.41 Presence of insulin pump (external) (internal); N40.0 Benign prostatic hyperplasia without lower urinary tract symptoms; I25.2 Old myocardial infarction; Z80.3 Family history of malignant neoplasm of breast; Z87.442 Personal history of urinary calculi; Z87.891 Personal history of nicotine dependence; Z95.5 Presence of coronary angioplasty implant and graft; Z88.5 Allergy status to narcotic agent; Z90.49 Acquired absence of other specified parts of digestive tract
CPT/HCPCS: 36415; 71045; 80048; 80053; 82962; 83690; 83880; 84484; 85025; 93005; 93458; 99156; 99285; C1760; C1769; C1894; G0378; J1650; J2250; J3010; Q9967

== ENCOUNTER → 2018-06-18 | Outpatient (CLI) | payer OTHER | END | disposition home or self-care (01) | LOC: CVU 08:00 | PROVIDERS: ATTEND Internal Medicine Critical Care Medicine | DX: I08.0 Rheumatic disorders of both mitral and aortic valves (principal); I21.4 Non-ST elevation (NSTEMI) myocardial infarction; I10 Essential (primary) hypertension; E10.9 Type 1 diabetes mellitus without complications; E78.5 Hyperlipidemia, unspecified; G47.33 Obstructive sleep apnea (adult) (pediatric) | CPT/HCPCS: 93306 ==

== ENCOUNTER 2018-06-24 07:20 | Observation (INO) | payer OTHER ==
[~2018-06-24] VITALS: Ht 180.3 cm; Wt 82.5 kg
[2018-06-24] MEDS ORDERED: ASPIRIN 81 MG TABLET CHEW ONE (07:30)
--- NOTE | 2018-06-24 07:38 | NUR ---
THIS IS A 77 YEAR OLD MALE WHO WAS BIB BY AMBULANCE DUE TO CP. PT HAS HX OF STENT IN MAR 2018, DM WITH INSULIN PUMP. PT STATES PAIN ON SET WAS 8/10. PT TOOK 2 NTG, PAIN IS 2/10 AT THIS TIME. PT PLACED ON CHISELER HEAD SINUS, CONTINOUS SP02 AT 98%, AND CYCLE VS. CALL LIGHT IN PLACE. WARM BLANKET GIVEN
[2018-06-24] MEDS ORDERED: ASPIRIN 81 MG TABLET CHEW PO ONE (08:00)
[2018-06-24] MEDS ORDERED: SODIUM CHLORIDE FLUSH 10ML SYR IVF ONE (08:00)
[2018-06-24 08:07] LABS: PROTHROMBIN TIME 10.5 Seconds (9.6-11.5)
[2018-06-24 08:08] LABS: ALBUMIN 3.2 g/dL (3.4-5.0); ANION GAP 6 mmol/L (5-15); CALCIUM 8.6 mg/dL (8.5-10.1); CHLORIDE 113 mmol/L (98-107)
--- NOTE | 2018-06-24 08:46 | NUR ---
CARDIAC REHAB APPT WAS CANCELLED SPOKE WITH AKI NEED A SCRIPT PRIOR TO GOING BACK TO REHAB.
[2018-06-24 09:04] LABS: MEAN CORPUSCULAR HGB CONC 32.5 g/dL (33.2-36.2); MEAN CORPUSCULAR VOLUME 95.3 fL (81-97); PLATELET COUNT 178 x10^3/uL (130-400); RED CELL DISTRIBUTION WIDTH 14.6 % (9.4-14.8)
[2018-06-24 09:05] LABS: BASOPHILS # (AUTO) 0.01 x10^3/uL (0-0.1); BASOPHILS % (AUTO) 0 % (0-1); EOSINOPHILS # (AUTO) 0.07 x10^3/uL (0-0.4); EOSINOPHILS % (AUTO) 1 % (1-7); LYMPHOCYTES # (AUTO) 1.16 x10^3/uL (1-3.4); LYMPHOCYTES % (AUTO) 15 % (22-44); MD SCAN; MONOCYTES # (AUTO) 0.45 x10^3/uL (0.2-0.8); MONOCYTES % (AUTO) 6 % (2-9); NEUTROPHILS # (AUTO) 5.87 x10^3/uL (1.8-6.8); NEUTROPHILS % (AUTO) 78 % (42-75)
--- NOTE | 2018-06-24 10:35 | NUR ---
REPORT TO ISHAAN EVERETT, PLAN OF CARE GIVEN
[2018-06-24 10:59] VITALS: BP 138/81
[2018-06-24] MEDS ORDERED: ACETAMINOPHEN 325 MG TABLET PO PRN (11:30)
[2018-06-24] MEDS ORDERED: DOCUSATE 100 MG CAPSULE PO PRN (11:30)
[2018-06-24] MEDS ORDERED: GABAPENTIN 300 MG CAPSULE PO PRN (11:30)
[2018-06-24] MEDS ORDERED: LABETALOL 5MG/ML, 20ML IVPush PRN (11:30)
[2018-06-24] MEDS ORDERED: IPRATROPIUM BROMIDE NS SCH (11:30)
[2018-06-24] MEDS ORDERED: hydrALAzine 20 MG/ML, 1ML IVPush PRN (11:30)
[2018-06-24] MEDS ORDERED: POLYETHYLENE GLYCOL 17 GM PACKET PO PRN (11:30)
[2018-06-24] MEDS ORDERED: BISACODYL 10 MG SUPP PR PRN (11:30)
[2018-06-24] MEDS ORDERED: DEXTROSE 4 GM TAB.CHEW PO PRN (12:00)
[2018-06-24] MEDS ORDERED: DEXTROSE 50%, 50ML SYRINGE IVPush PRN (12:00)
[2018-06-24] MEDS ORDERED: GLUCAGON 1 MG IM PRN (12:00)
[2018-06-24] MEDS: TICAGRELOR 90 MG TABLET PO SCH ×2 (12:30→22:00)
[2018-06-24] MEDS: SODIUM CHLORIDE FLUSH 10ML SYR IVF SCH (12:31)
[2018-06-24 12:44] LABS: TROPONIN I 0.021 ng/mL (0.000-0.045)
[2018-06-24 12:49] LABS: THYROID STIMULATING HORMONE 0.667 mIU/L (0.358-3.740)
[2018-06-24 13:02] LABS: HEMOGLOBIN A1C 7.8 % (4.2-6.3)
[2018-06-24 13:07] VITALS: BP 115/64
[2018-06-24] MEDS: HEPARIN 5,000 UNITS/ML, 1ML SQ SCH (16:59)
[2018-06-24 17:25] LABS: TROPONIN I 0.023 ng/mL (0.000-0.045)
[2018-06-24 19:13] VITALS: BP 118/69
[2018-06-24] MEDS ORDERED: ATORVASTATIN 80 MG TABLET PO SCH (21:00)
[2018-06-24] MEDS ORDERED: TICAGRELOR 90 MG TABLET PO SCH (21:00)
[2018-06-24] MEDS ORDERED: TRAZODONE 100MG TABLET PO SCH (21:00)
[2018-06-24] MEDS ORDERED: EPINASTINE RIGHTEYE SCH (21:00)
[2018-06-24] MEDS ORDERED: METOPROLOL TARTRATE 25 MG TABLET PO SCH (21:00)
[2018-06-24] MEDS: TIMOLOL OPHTH 0.5%, 5ML RIGHTEYE SCH (21:00)
[2018-06-24] MEDS ORDERED: EPINASTINE HCL RIGHTEYE SCH (21:00)
[2018-06-24] MEDS: METOPROLOL TARTRATE 25 MG TABLET PO SCH (22:01)
[2018-06-25 00:23] VITALS: BP 135/72
[2018-06-25] MEDS: SODIUM CHLORIDE FLUSH 10ML SYR IVF SCH ×2 (00:25→09:41)
[2018-06-25] MEDS: HEPARIN 5,000 UNITS/ML, 1ML SQ SCH ×2 (00:25→09:41)
[2018-06-25 05:29] LABS: CHLORIDE 112 mmol/L (98-107)
[2018-06-25 05:32] LABS: BASOPHILS # (AUTO) 0.02 x10^3/uL (0-0.1); BASOPHILS % (AUTO) 1 % (0-1); EOSINOPHILS # (AUTO) 0.23 x10^3/uL (0-0.4); EOSINOPHILS % (AUTO) 5 % (1-7); LYMPHOCYTES # (AUTO) 2.09 x10^3/uL (1-3.4); LYMPHOCYTES % (AUTO) 43 % (22-44); MD NO; MEAN CORPUSCULAR HEMOGLOBIN 32.4 pg (27.5-34.5); MEAN CORPUSCULAR HGB CONC 33.6 g/dL (33.2-36.2); MEAN CORPUSCULAR VOLUME 96.4 fL (81-97); MEAN PLATELET VOLUME 9.6 fL (7.4-10.4); MONOCYTES # (AUTO) 0.42 x10^3/uL (0.2-0.8); MONOCYTES % (AUTO) 9 % (2-9); NEUTROPHILS # (AUTO) 2.12 x10^3/uL (1.8-6.8); NEUTROPHILS % (AUTO) 43 % (42-75); PLATELET COUNT 201 x10^3/uL (130-400); RED BLOOD COUNT 3.99 x10^6/uL (4.38-5.82); RED CELL DISTRIBUTION WIDTH 14.1 % (9.4-14.8)
[2018-06-25 05:40] LABS: ALANINE AMINOTRANSFERASE 35 U/L (12-78); ALBUMIN 3.4 g/dL (3.4-5.0); ALKALINE PHOSPHATASE 97 U/L (45-117); ANION GAP 7 mmol/L (5-15); BILIRUBIN,TOTAL 0.3 mg/dL (0.2-1.0); CALCIUM 8.5 mg/dL (8.5-10.1); CHOL/HDL RATIO 2.8; CHOLESTEROL, TOTAL 111 mg/dL (140-239); CREATININE 1.09 mg/dL (0.7-1.3); HDL CHOL % 35 % (26-37); HDL CHOLESTEROL (DIRECT) 39 mg/dL (40-60); LDL CHOLESTEROL,CALCULATED 58 mg/dL (54-169); LDL/HDL RATIO 1.5 (0.5-3.0); TOTAL PROTEIN 6.1 g/dL (6.4-8.2); TRIGLYCERIDES 69 mg/dL (50-200); VLDL CHOLESTEROL 14 mg/dL (0-25)
[2018-06-25] MEDS ORDERED: ASPIRIN 81 MG TABLET EC PO SCH (06:00)
[2018-06-25] MEDS ORDERED: SODIUM CHLORIDE 0.9% 1,000 ML IV SCH (07:00)
[2018-06-25 07:09] VITALS: BP 119/70
[2018-06-25] MEDS ORDERED: OMNIPAQUE 350 MG/ML, 100ML BOTTLE ONE (07:46)
[2018-06-25] MEDS ORDERED: LISINOPRIL 5 MG TABLET PO SCH (09:00)
[2018-06-25] MEDS ORDERED: CLOPIDOGREL 75 MG TABLET PO ONE (09:00)
[2018-06-25] MEDS ORDERED: SERTRALINE 50MG TABLET PO SCH (09:00)
[2018-06-25] MEDS: TIMOLOL OPHTH 0.5%, 5ML RIGHTEYE SCH (09:00)
[2018-06-25] MEDS ORDERED: TEMPLATE NON-FORMULARY MED. (Dexlansoprazole** (Dexilant**) 60 MG) PO SCH (09:00)
[2018-06-25] MEDS: METOPROLOL TARTRATE 25 MG TABLET PO SCH (09:42)
[2018-06-25] MEDS ORDERED: ESOM40CA PO (09:52)
[2018-06-25] MEDS ORDERED: CLOP75TA52 PO (12:47)
[2018-06-25 14:08] VITALS: BP 115/60
== END 2018-06-25 15:31 | disposition home or self-care (01) ==
LOC: ED 09:43 → EDIP 09:56 → INTOOBSV 09:56 → 5SO 10:52 → DCLOUNGE 06-25 15:21
PROVIDERS: ADMIT Hospitalist; ATTEND Hospitalist
DX: R07.89 Other chest pain (principal); I25.10 Atherosclerotic heart disease of native coronary artery without angina pectoris; E11.9 Type 2 diabetes mellitus without complications; I10 Essential (primary) hypertension; G47.33 Obstructive sleep apnea (adult) (pediatric); N40.0 Benign prostatic hyperplasia without lower urinary tract symptoms; I25.2 Old myocardial infarction; E78.5 Hyperlipidemia, unspecified; Z79.01 Long term (current) use of anticoagulants; Z79.4 Long term (current) use of insulin; Z87.442 Personal history of urinary calculi; Z95.5 Presence of coronary angioplasty implant and graft; Z80.3 Family history of malignant neoplasm of breast; Z80.1 Family history of malignant neoplasm of trachea, bronchus and lung; Z96.41 Presence of insulin pump (external) (internal)
CPT/HCPCS: 36415; 71045; 71275; 80048; 80053; 80061; 82040; 82962; 83036; 83690; 83735; 83880; 84439; 84443; 84484; 85025; 85379; 85610; 93005; 96372; 99284; G0378; J1644; J7030; Q9967